=== PATIENT | male | born 2000 | race Caucasian/White ===

== ENCOUNTER 2021-12-24 13:45 | Emergency (ER) | payer OTHER ==
[~2021-12-24] VITALS: Ht 190.5 cm; Wt 85.5 kg
[2021-12-24 13:47] VITALS: BP 139/64
[2021-12-24] MEDS ORDERED: KETO60IN IM (13:53)
== END 2021-12-24 18:22 | disposition home or self-care (01) ==
LOC: M ED 13:45
DX: N50.812 Left testicular pain (principal); W01.0XXA Fall on same level from slipping, tripping and stumbling without subsequent striking against object, initial encounter; W22.8XXA Striking against or struck by other objects, initial encounter; Y92.9 Unspecified place or not applicable; Y93.9 Activity, unspecified; Y99.1 Military activity; Z88.0 Allergy status to penicillin

== ENCOUNTER 2022-05-25 08:45 | Emergency (ER) | payer OTHER ==
[~2022-05-25] VITALS: Ht 190.5 cm; Wt 81.8 kg
[~2022-05-25 08:45] MED LIST: KETO60IN IM
[2022-05-25 08:46] VITALS: BP 129/86
== END 2022-05-25 10:30 | disposition home or self-care (01) ==
LOC: M ED 08:45
DX: R55 Syncope and collapse (principal); F17.200 Nicotine dependence, unspecified, uncomplicated; F10.10 Alcohol abuse, uncomplicated; Z88.0 Allergy status to penicillin